=== PATIENT | female | born 1965 | race Caucasian/White ===

== ENCOUNTER 2019-04-27 12:27 | Emergency (ER) | payer OTHER ==
[~2019-04-27 12:27] MED LIST: ACET500T PO; AMOX500T PO; ANTI25TA PO; NO HISTORICAL MEDS
[2019-04-27] MEDS ORDERED: PANT40TA3 (12:50)
[2019-04-27] MEDS ORDERED: ALL10TAB29 (12:50)
[2019-04-27] MEDS ORDERED: MELO15TA28 (12:50)
[2019-04-27] MEDS ORDERED: TIZA2TA (12:50)
[2019-04-27] MEDS ORDERED: METF-791 (12:50)
[2019-04-27] MEDS ORDERED: DULO1CAP6 (12:50)
[2019-04-27] MEDS ORDERED: NS 1,000 ML IV SCH (14:43)
[2019-04-27] MEDS ORDERED: ONDANSETRON 4MG/2ML VIAL (J2405) IV ONE (14:45)
--- NOTE | 2019-04-27 15:23 | REP ---
MRI lumbar spine without contrast: History: Back pain with urinary incontinence. Rule out cauda equina syndrome. Technique: Sagittal and axial T1 and T2-weighted scans are acquired in the usual fashion with and without fat saturation. Sequences include spin echo, turbo spin-echo, and STIR imaging sequences. MRI findings: Lumbar vertebral body heights are preserved. Alignment is normal. Cortical and medullary bone signal intensity are normal. No bony destructive lesion is seen. Normal caliber aorta is noted. There are low T1, low T2 signal intensity mass lesions in the uterus visualized at the bottom of the imaging field of view consistent with an enlarged fibroid uterus. Adjacent to this to the right of midline there are fluid-fluid levels in two small ovarian cysts. Hemorrhagic cyst versus dermoid cyst. The largest cystic component visualized is 3.2 cm in diameter. Consider pelvic sonography. The tip of the conus medullaris is normal in position and appearance at L1. At L2-3, axial and sagittal images demonstrate degenerative disc space narrowing and mild diffuse disc bulging effacing the ventral subarachnoid space. No central canal stenosis or foraminal narrowing is seen. At L3-4, there is mild degenerative narrowing as well. No spinal stenosis or foraminal narrowing is seen. At L4-5, there is mild decreased disc space height and signal intensity. No significant disc protrusion is seen. No thecal sac compression is noted. There is mild facet hypertrophy at L4-5. At L5-S1, there is mild facet hypertrophy noted bilaterally. No disc protrusion is seen. No foraminal narrowing is seen. Impression: Mild degenerative disc changes L2-3 through L4-5. Facet hypertrophy is noted at L4-5 and L5-S1 bilaterally. Disc bulging is seen and L2-3. No cauda equina compression is seen. Incidental note is made of enlarged fibroid uterus and complex cystic lesion in the right ovary. Consider pelvic sonography. Electronically Signed by Ubaldo Fung MD 04/27/2019 03:33 P
[2019-04-27 15:57] LABS: BASO # 0.1 10^3/uL (0.0-0.2); BASO % 0.4 % (0.0-1.0); EOS # 0.1 10^3/uL (0.0-0.5); HEMOGLOBIN 13.7 g/dl (12.0-15.5); LYMPH # 3.2 10^3/uL (1.5-5.0); LYMPH % 28.1 % (24.0-44.0); MEAN CORPUSCULAR HEMOGLOBIN 26.9 pg (27.0-33.0); MEAN CORPUSCULAR HGB CONC 31.9 g/dl (32.0-36.5); MEAN CORPUSCULAR VOLUME 84.5 fl (80.0-96.0); MONO # 0.7 10^3/uL (0.0-0.8); MONO % 6.4 % (0.0-5.0); NEUTROPHILS # 7.3 10^3/uL (1.5-8.5); NEUTROPHILS % 63.8 % (36.0-66.0); PLATELET COUNT, AUTOMATED 307 10^3/uL (150-450); RED BLOOD COUNT 5.09 10^6/uL (4.00-5.40); WHITE BLOOD COUNT 11.5 10^3/uL (4.0-10.0)
--- NOTE | 2019-04-27 16:07 | REP ---
Left lower extremity Duplex Doppler venous ultrasound: Real time compression and duplex Doppler interrogation of the left lower extremity deep venous system is performed. The left common femoral, superficial femoral and popliteal veins are fully compressible with transducer pressure and demonstrate normal spontaneous and phasic flow, without evidence of deep venous thrombosis. Impression: No evidence of deep venous thrombosis of the left lower extremity femoral popliteal venous system. Electronically Signed by Gerardo Vásquez MD 04/27/2019 03:58 P
[2019-04-27 16:12] LABS: INR 1.03; PARTIAL THROMBOPLASTIN TIME 23.7 SECONDS (25.0-38.4); PROTHROMBIN TIME 13.2 SECONDS (11.8-14.0)
[2019-04-27 16:17] LABS: ALBUMIN 3.6 GM/DL (3.2-5.2); ALT/SGPT 40 U/L (12-78); BILIRUBIN,DIRECT 0.1 MG/DL (0.0-0.2); BILIRUBIN,TOTAL 0.4 MG/DL (0.2-1.0); BLOOD UREA NITROGEN 14 MG/DL (7-18); CARBON DIOXIDE LEVEL 26 MEQ/L (21-32); CHLORIDE LEVEL 104 MEQ/L (98-107); CREATININE FOR GFR 0.84 MG/DL (0.55-1.30); GLOMERULAR FILTRATION RATE > 60.0 (>51); GLUCOSE, FASTING 126 MG/DL (70-100); LIPASE 239 U/L (73-393); POTASSIUM SERUM 4.1 MEQ/L (3.5-5.1); SODIUM LEVEL 139 MEQ/L (136-145); TOTAL PROTEIN 7.1 GM/DL (6.4-8.2)
[2019-04-27] MEDS ORDERED: ZOFR4TAB16 PO (18:09)
[2019-04-27 18:42] VITALS: BP 153/67
--- NOTE | 2019-04-27 19:33 | ED PDOC ---
Post-Departure Follow-Up dr cesar faxed formal report of mri ls spine for fu Rosa Butterfield MD Apr 27, 2019 19:33
--- NOTE | 2019-04-27 20:10 | ECGEPIP ---
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
== END 2019-04-27 18:53 | disposition home or self-care (01) ==
LOC: M ED 12:27 → EDBD 12:27 → M ED 18:53
DX: R11.2 Nausea with vomiting, unspecified (principal); R19.7 Diarrhea, unspecified; R10.32 Left lower quadrant pain; R73.03 Prediabetes; I10 Essential (primary) hypertension; F32.9 Major depressive disorder, single episode, unspecified; K21.9 Gastro-esophageal reflux disease without esophagitis; Z87.440 Personal history of urinary (tract) infections; G89.29 Other chronic pain; M54.9 Dorsalgia, unspecified; M51.36 Other intervertebral disc degeneration, lumbar region; M51.26 Other intervertebral disc displacement, lumbar region; D25.9 Leiomyoma of uterus, unspecified; Z79.84 Long term (current) use of oral hypoglycemic drugs; Z79.899 Other long term (current) drug therapy
CPT/HCPCS: 72148; 80048; 80076; 81001; 83690; 85025; 85610; 85730; 93005; 93041; 93971; 96361; 96374; 99285; J2405

== ENCOUNTER 2021-05-30 09:47 | Inpatient (IN) | payer OTHER ==
[~2021-05-30] VITALS: Ht 152.4 cm; Wt 77.5 kg
[~2021-05-30 09:47] MED LIST changes: +CETI-24; +DULO1CAP6; +MELO15TA28; +METF-838; +PANT40TA29; +TIZA2TA; +ZOFR4TAB16 PO
[2021-05-30] MEDS ORDERED: FLUTISP NARES (09:57)
[2021-05-30] MEDS ORDERED: AMOX875T2 PO (09:57)
--- OUTSIDE RECORDS SUMMARY | 2021-05-30 11:21 | CCD ---
Author Author [facility] Organization [facility] Address Unknown Phone Unavailable Care Team Providers Care Certified Personal Finance Counselor Name Role Phone Maring, Owen PA Unavailable Unavailable Maring, Owen PA Unavailable Unavailable Maring, Owen PA Unavailable Unavailable Maring, Owen PA Unavailable Unavailable Maring, Owen PA Unavailable Unavailable Maring, Owen PA Unavailable Unavailable Maring, Owen PA Unavailable Unavailable Maring, Owen PA Unavailable Unavailable Maring, Owen PA Unavailable Unavailable Maring, Owen PA Unavailable Unavailable Maring, Owen PA Unavailable Unavailable Maring, Owen PA Unavailable Unavailable Maring, Owen PA Unavailable Unavailable Maring, Owen PA Unavailable Unavailable Maring, Owen PA Unavailable Unavailable Maring, Owen PA Unavailable Unavailable Re-disclosure Warning The records that you are about to access may contain information from federally-assisted alcohol or drug abuse programs. If such information is present, then the following federally mandated warning applies: This information has been disclosed to you from records protected by federal confidentiality rules (42 CFR part 2). The federal rules prohibit you from making any further disclosure of this information unless further disclosure is expressly permitted by the written consent of the person to whom it pertains or as otherwise permitted by 42 CFR part 2. A general authorization for the release of medical or other information is NOT sufficient for this purpose. The Federal rules restrict any use of the information to criminally investigate or prosecute any alcohol or drug abuse patient.The records that you are about to access may contain highly sensitive health information, the redisclosure of which is protected by Article 27-F of the [facility] Public Health law. If you continue you may have access to information: Regarding HIV / AIDS; Provided by facilities licensed or operated by the [facility] Office of Mental Health; or Provided by the [facility] Office for People With Developmental Disabilities. If such information is present, then the following [facility] mandated warning applies: This information has been disclosed to you from confidential records which are protected by state law. State law prohibits you from making any further disclosure of this information without the specific written consent of the person to whom it pertains, or as otherwise permitted by law. Any unauthorized further disclosure in violation of state law may result in a fine or halfway sentence or both. A general authorization for the release of medical or other information is NOT sufficient authorization for further disc losure. Encounters Encounter Providers Location Date Indications Data Source(s ) Outpatient Attender: Owen PÉREZ 03/15/20 07:21:20 AM EDT - 03/15/2021 07:48:54 [facility] Medications Medication Brand Name Start Date Product Form Dose Route Admi nistrative Instructions Pharmacy Instructions Status Indications Reaction Description Data Source(s) Amoxicillin 875 MG / Clavulanate 125 MG Oral Tablet 87 5-125 mg AMOXICILLIN/POTASSIUM CLAV 05/28/2021 12:00:00 AM EDT tablet 20 TAKE ONE TABLET BY MOUTH EVERY 12 HOURS FOR 10 DAYS TAKE ONE TABLET BY MOUTH EVERY 12 HOURS FOR 10 DAYS SOLD: 05/28/2021 [facility] 50 mcg/actuation 05/28/2021 12:00:00 AM EDT spray,suspension 16 SPRAY TWO SPRAYS IN EACH NOSTRIL EVERY DAY SPRAY TWO SPRAYS IN EACH NOSTRIL EVERY DAY SOLD: 05/28/2021 [facility] Insurance Providers Payer name Policy type / Coverage type Policy ID Covered libertarian ID Covered libertarian's relationship to chicas Policy Chicas Plan Information [facility] [id number] SP [id number] Aetna Other 0 [id number] Self 0 Aetna Other 0 [id number] Self 0 Aetna Other 0 [id number] Self 0 Aetna Other 0 [id number] Self 0 Aetna Other 0 [id number] Self 0 Aetna Other 0 [id number] Self 0 Aetna Life Insurance F [id number] SELF [id number] Aetna Life Insurance F [id number] SELF [id number] [facility] W [id number] Empl [id number] [place] Other 0 [id number] Self 0 [place] Other 0 [id number] Self 0 [place] Other 0 [id number] Self 0 [place] Other 0 [id number] Self 0 [place] Other 0 [id number] Self 0 [place] Other 0 [id number] Self 0 [place] Other 0 [id number] Self 0 [place] 0 [id number] Self 0 [place] 0 [id number] Self 0 [place] Other 0 [id number] Self 0 [place] 0 [id number] Self 0 [place] Other 0 [id number] Self 0 [place] Other 0 [id number] Self 0 [place] Other 0 [id number] Self 0 [place] Other 0 [id number] Self 0 [place] Other 0 [id number] Self 0 BC [id number] SP [id number] 400 [place] Other 0 [id number] Self 0 [place] Other 0 [id number] Self 0 [place] Other 0 [id number] Self 0 [place] Other 0 [id number] Self 0 [place] Other 0 [id number] Self 0 [place] 0 [id number] Self 0 [place] 0 [id number] Self 0 [place] 0 [id number] Self 0 [place] Other 0 [id number] Self 0 [place] Other 0 [id number] Self 0 [place] Other 0 [id number] Self 0 [place] Other 0 [id number] Self 0 [place] Other 0 [id number] Self 0 BC MEDICAID [id number] Frida 7 [id number] [place] Other 0 [id number] Self 0 BC MEDICARE [id number] Frida 7 [id number] [place] Other 0 [id number] Self 0 [place] Other 0 [id number] Self 0 [place] Other 0 [id number] Self 0 [place] Other 0 [id number] Self 0 BC I [id number] Self [id number] BC [id number] SP [id number] SELF PAY SELF PAY [place] [id number] SP [id number] SELF PAY [place] [id number] SP [id number] AETNA LIFE CASUALTY [id number] SP [id number] SELF PAY [place] [id number] SP [id number] [employer]. [id number] Self [id number] SELF PAY UNAVAILABLE SP UNAVAILA BLE [facility] [id number] SP [id number] BC [id number] SP [id number] [facility] COMMUNITY PLAN [id number] SP [id number] [employer] [id number] SP [id number] [employer] [place] [id number] Commercial Insurance [employer] Aetna Medicare ..[id number] Commercial Insurance [facility] P [id number] S [id number] [facility] COMMUNITY PLAN [facility] [id number] SP [id number] [employer] [id number] SP [id number] SELF PAY UNAVAILABLE UNAVAILA BLE WC-PENDING UNAVAILABLE SP UNAVAIL ABLE [employer] COMP UNAVAILABLE UNAVAIL ABLE [employer] [id number] Commercial Ins urance [id number] UN ID IDENTIFICATION .[id number] .[id number] [id number] Other Insurance .[id number] [facility] [id number] Commercial Insurance [id number] [employer] MEDICARE PI PI Problems, Conditions, and Diagnoses No Information Surgeries/Procedures No Information Results ID Date Data Source [id number] 05/20/2021 12:00:00 AM EDT [place] Name Value Range Interpretation Code Description Data Sally rce(s) Supporting Document(s) PCR NEGATIVE [place] This lab was ordered by [facility] and reported by [facility]. ID Date Data Source [id number] 08/15/2020 11:30:19 AM EST [facility] Name Value Range Interpretation Code Description Data Sally rce(s) Supporting Document(s) SARS COV2 SOURCE [facility] SARS COV 2 BY PCR [facility] Not Detected INTERPRETIVE INFORMATION: S ARS-CoV-2 (COVID-19) by CHRIS This test should be ordered for the detection of the 2019 novel coronavirus SARS-CoV-2 in individuals who meet SARS-CoV-2 clinical and/or epidemiological criteria. The Coronavirus SARS-CoV-2 (COVID-19) by nucleic acid amplification test is for in vitro diagnostic use under the FDA Emergency Use Authorization (EUA) for US laboratories certified under CLIA to perform high complexity tests. This test has not been FDA cleared or approved. In compliance with this authorization, please visit [email or web address] for more information and to access the applicable information sheets. Not Detected results do not rule out the presence of PCR inhibitors in the patient specimen or assay specific nucleic acid in concentrations below the level of detection by the assay. Detected results are indicative of the presence of SARS-CoV-2 RNA. Due to the complexity of nucleic acid amplification methodologies, there may be a risk of false positive results. Clinical correlation with patient history and other diagnostic information is necessary to determine patient infection status. Reliable results are dependent on adequate specimen collection, transport, storage, and handling. Performed by [facility] [employer], [address] [place] [address],[place] [address] [email or web address], Madonna Wilburn MD, Lab. Director ID Date Data Source [id number] 08/12/2020 12:00:00 AM EST [place] Name Value Range Interpretation Code Description Data Sally rce(s) Supporting Document(s) SARS-CoV2 Rapid Antigen Negative [facility] This lab was ordered by [facility] and reported by [facility]. Procedure Social History No Information
[2021-05-30 11:32] LABS: HEMATOCRIT 48.9 % (36.0-47.0); HEMOGLOBIN 15.6 g/dl (12.0-15.5); MEAN CORPUSCULAR HEMOGLOBIN 27.3 pg (27.0-33.0); MEAN CORPUSCULAR HGB CONC 31.9 g/dl (32.0-36.5); MEAN CORPUSCULAR VOLUME 85.5 fl (80.0-96.0); PLATELET COUNT, AUTOMATED 186 10^3/uL (150-450); RED BLOOD COUNT 5.72 10^6/uL (4.00-5.40); WHITE BLOOD COUNT 4.6 10^3/uL (4.0-10.0)
[2021-05-30] MEDS ORDERED: NS 1,000 ML IV ONE (11:45)
[2021-05-30] MEDS ORDERED: MECLIZINE 25 MG TABLET PO ONE (11:45)
[2021-05-30] MEDS ORDERED: ONDANSETRON 4MG/2ML VIAL IV ONE (11:45)
[2021-05-30 11:56] LABS: ALBUMIN 3.4 GM/DL (3.2-5.2); ALT/SGPT 146 U/L (12-78); BILIRUBIN,TOTAL 0.8 MG/DL (0.2-1.0); BLOOD UREA NITROGEN 11 MG/DL (7-18); CALCIUM LEVEL 8.8 MG/DL (8.5-10.1); CARBON DIOXIDE LEVEL 33 MEQ/L (21-32); CHLORIDE LEVEL 98 MEQ/L (98-107); CREATININE FOR GFR 0.88 MG/DL (0.55-1.30); GLOMERULAR FILTRATION RATE > 60.0 (>51); GLUCOSE, FASTING 144 MG/DL (70-100); POTASSIUM SERUM 3.3 MEQ/L (3.5-5.1); SODIUM LEVEL 135 MEQ/L (136-145); TOTAL PROTEIN 7.2 GM/DL (6.4-8.2)
--- NOTE | 2021-05-30 12:06 | REP ---
INDICATION: Coronavirus workup. COMPARISON: None. TECHNIQUE: AP portable chest image was obtained. FINDINGS: There is airspace disease in the left lung base consistent with atelectasis or pneumonia. The lungs are otherwise clear. The heart borders and mediastinum are normal. The upper abdominal bowel gas pattern is normal. There are no bony abnormalities of the chest. IMPRESSION: Airspace disease in the left lung base consistent with atelectasis or pneumonia. <Electronically signed by Tico Nichole > 05/30/21 [id number]
[2021-05-30 12:22] LABS: ANISOCYTOSIS 1+; ATYPICAL LYMPH 3 % (0-5); LYMPHOCYTES 31 % (16-44); MONOCYTES 3 % (0-5); NEUTROPHILS 62 % (28-66); PLATELET ESTIMATE NORMAL (NORMAL)
[2021-05-30 12:59] LABS: C REACTIVE PROTEIN QUANTITATIV 2.08 MG/DL (0.00-0.30); CK-MB VALUE MASS < 1.0 NG/ML (<3.6); CPK CREATINE PHOSPHOKINASE 25 U/L (26-192); LDH LACTATE DEHYDROGENASE 300 U/L (84-246); MAGNESIUM LEVEL 2.3 MG/DL (1.8-2.4); TROPONIN I < 0.02 NG/ML (< 0.10)
[2021-05-30] MEDS ORDERED: POTASSIUM CHLORIDE 10MEQ SR TABLET PO ONE (14:05)
[2021-05-30] MEDS ORDERED: ACETAMINOPHEN TAB 650MG DOSE (2X325MG) PO PRN (14:35)
--- OUTSIDE RECORDS SUMMARY | 2021-05-30 14:48 | CCD ---
Author Author [facility] Organization [facility] Address Unknown Phone Unavailable Care Team Providers Care Tunnel Kiln Operator Name Role Phone Maring, Owen PA Unavailable [...] is protected by Article 27-F of the [facility] Public Health law. If you continue you may have access to information: Regarding HIV / AIDS; Provided by facilities licensed or operated by the [facility] Office of Mental Health; or Provided by the [facility] Office for People With Developmental Disabilities. If such information is present, then the following [facility] mandated warning applies: This information has been [...] law may result in a fine or mcfp sentence or both. A general authorization for the release of medical or other information is NOT sufficient authorization for further disc losure. Encounters Encounter Providers Location Date Indications Data Source(s ) Outpatient Attender: Owen PÉREZ 03/15/20 07:21:20 AM EDT - 03/15/2021 07:48:54 AM EDT [facility] Medications Medication Brand Name [...] type / Coverage type Policy ID Covered green party ID Covered green party's relationship to chicas Policy Chicas Plan Information [facility] [id number] SP [id number] Aetna Other 0 [id number] Self 0 Aetna Other 0 [id number] Self 0 Aetna Other 0 [id number] Self 0 Aetna Other 0 [id number] Self 0 Aetna Other 0 [id number] Self 0 Aetna Other 0 [id number] Self 0 Aetna Life Insurance F [id number] SELF [id number] Aetna Life Insurance F [id number] SELF [id number] [facility] W [id number] Empl [id number] Medicaid of [place] Other 0 [id number] Self 0 [place] Other 0 [id number] Self 0 [place] Other 0 [id number] Self 0 [place] Other 0 [id number] Self 0 [place] Other 0 [id number] Self 0 [place] Other 0 [id number] Self 0 [place] Other 0 [id number] Self 0 [place] Other 0 [id number] Self 0 [place] Other 0 [id number] Self 0 [place] Other 0 [id number] Self 0 [place] Other 0 [id number] Self 0 [place] Other 0 [id number] Self 0 [place] Other 0 [id number] Self 0 [place] Other 0 [id number] Self 0 [place] Other 0 [id number] Self 0 [place] Other 0 [id number] Self 0 BC [id number] SP [id number] [place] Other 0 [id number] Self 0 [place] Other 0 [id number] Self 0 [place] Other 0 [id number] Self 0 [place] Other 0 [id number] Self 0 [place] Other 0 [id number] Self 0 [place] Other 0 [id number] Self 0 [place] Other 0 [id number] Self 0 [place] Other 0 [id number] Self 0 [place] Other 0 [id number] Self 0 [place] Other 0 [id number] Self 0 [place] Other 0 [id number] Self 0 [place] Other 0 [id number] Self 0 [place] Other 0 [id number] Self 0 BC MEDICAID [id number] Frida 7 [id number] [place] Other 0 [id number] Self 0 BC MEDICARE [id number] Frida 7 [id number] [place] Other 0 [id number] Self 0 [place] Other 0 [id number] Self 0 [place] Other 0 [id number] Self 0 [place] Other 0 [id number] Self 0 BC I [id number] Self [id number] BC [id number] SP [id number] SELF PAY SELF PAY [place] [id number] SP [id number] SELF PAY BC [id number] SP [id number] [employer] [id number] SP [id number] SELF PAY [place] [id number] SP [id number] Bc [employer] Co. [id number] Self [id number] SELF PAY UNAVAILABLE SP UNAVAILA BLE [facility] [id number] SP [id number] BC [id number] SP [id number] [facility]AN [id number] SP [id number] [employer] [id number] SP [id number] [employer] [place] [employer] [id number] Commercial Insurance [employer] [place] Aetna Medicare ..[id number] Commercial Insurance [facility]) P [id number] S [id number] [facility] COMMUNITY PLAN [facility] [id number] SP [id number] [employer] [id number] SP [id number] SELF PAY UNAVAILABLE UNAVAILA BLE WC-PENDING UNAVAILABLE SP UNAVAIL ABLE [employer] COMP UNAVAILABLE UNAVAIL ABLE [employer] [place] [id number] Commercial Ins urance [id number] UN ID IDENTIFICATION .[id number] .1.1 [id number] Other Insurance .[id number] [facility] [id number] Commercial Insurance [id number] [employer] MEDIC[employer] PI PI Problems, Conditions, and Diagnoses No Information Surgeries/Procedures No Information Results ID Date Data Source [id number] 05/20/2021 12:00:00 AM EDT [place] Name Value Range Interpretation Code Description Data Sally rce(s) Supporting Document(s) PCR NEGATIVE [facility] This lab was ordered by [facility] and reported by [facility]. ID Date Data Source [id number] 08/15/2020 11:30:19 AM EST Laboratory [facility] [...] In compliance with this authorization, please visit [email or web address] for more information and to access the [...] collection, transport, storage, and handling. Performed by [facility], [address] [place] [address],[place] [address] [email or web address], Madonna Wilburn MD, Lab. Director ID Date Data Source [id number] 08/12/2020 12:00:00 AM EST [place] Name Value Range Interpretation Code Description Data Sally rce(s) Supporting Document(s) SARS-CoV2 Rapid Antigen Negative [facility] This lab was ordered by [facility] are and reported by [facility]. Procedure Social History No Information
[2021-05-30] MEDS ORDERED: ACET-683 PO (14:53)
[2021-05-30] MEDS ORDERED: HOME MED LIST COMPLETE! XX SCH (14:55)
[2021-05-30] MEDS ORDERED: ONDANSETRON 4MG/2ML VIAL IV PRN (15:00)
--- NOTE | 2021-05-30 15:03 | HPEPDOC ---
[facility] Medical History & Physical Date of Admission May 30, 2021 Date of Service: May 30, 2021 Attending Physician: TINO RITTER DO History and Physical CHIEF COMPLAINT: Nausea and vomiting HISTORY OF PRESENT ILLNESS: Patient is a 55-year-old female who presented to the emergency department today with chief complaint of nausea and vomiting. Patient states that she has been vomiting over the past 5 days. Patient states she has vomited 2-3 times each 1 of these days. Patient denies any blood in the vomit. Patient has not really been able to keep any food down over the last 5 days. Patient has been feeling increasingly weak and when she was here in the emergency department, the emergency department provider try to get her up and walk however, patient was so weak that she is unable to walk. Patient states that she went to urgent care earlier in the week and was diagnosed with otitis media and given Augmentin. Patient states that the Augmentin has not been helping and she continues to feel sick. Patient states that she had some stabbing pain in her ear but this may be slightly better. Patient describes a nonproductive cough but denies any shortness of breath. Patient denies any chest pain. Patient says she does have some mild abdominal pain mostly when she is vomiting. Patient was having some diarrhea but since she has not been eating, she has not had diarrhea over the past few days. When she was having diarrhea, this was brown water. Patient denies any blood in the diarrhea. Patient denies any feelings of dizziness but does state that she feels lightheaded. Patient denies any syncope. Patient was tested positive in the emergency department for COVID-19. PAST MEDICAL HISTORY: Patient denies any medical history stating that she is not treated for any chronic diseases PAST SURGICAL HISTORY: Patient states that she has never had any surgeries SOCIAL HISTORY: Patient denies smoking cigarettes, drinking alcohol or using illicit drugs FAMILY HISTORY: Patient states her mother has diabetes and is about to start hemodialysis ALLERGIES: Please see below. REVIEW OF SYSTEMS: General: Patient denies fevers and chills HEENT: Patient reports headaches and runny nose and ear pain Cardiovascular: Patient denies chest pain Respiratory: Patient denies shortness of breath. Patient reports a nonproductive cough GI: Patient reports abdominal pain, nausea, vomiting and diarrhea as above : Patient denies increased frequency or pain with urination Extremities: Patient denies swelling or pain in extremities Neurological: Patient denies numbness or tingling in legs Skin: Patient denies any new rashes or lesions. Hematologic: Patient denies any easy bruising. Lymphatic: Patient denies any lumps lumps or bumps in neck, axilla, or groin HOME MEDICATIONS: Please see below. PHYSICAL EXAMINATION: VITAL SIGNS: Temperature 97.9, pulse 65, respiratory rate 16, blood pressure 135/66, pulse oximetry 96% on room air. General: Alert and oriented female patient who was laying in bed on her side when I walked in. Patient not appear to be in any acute distress. HEENT: Normocephalic, atraumatic, dry mucous membranes, tympanic membranes pearly chao without erythema or exudate. Neck: No lymphadenopathy or thyromegaly Cardiac: Regular rate and rhythm, no murmurs, normal S1, normal S2 Pulm: Clear to auscultation bilaterally. No wheezes, rhonchi, rales Abd: Nondistended, minimal tenderness to palpation especially epigastric area, no rebound tenderness, normal bowel sounds Ext: No edema bilateral lower extremities Neuro: Patient was able to move all 4 extremities on command and reported equal sensation light touch in all 4 extremities. Skin: Skin of the head, neck, upper and lower extremities was examined did not show any evidence of rash or wounds. LABORATORY DATA: See below. IMAGING: Chest x-ray performed on 05/30/2021 is reported to show airspace disease in the left base consistent with atelectasis or pneumonia MICROBIOLOGY: Please see below. ASSESSMENT: 55-year-old female who presented to the hospital with chief complaint of nausea and vomiting who was diagnosed with COVID-19. . PLAN: 1. Nausea and vomiting. Patient is not been able to eat anything for the last 5 days according to the patient. She states that she has been able to drink some water. Patient reports some decreased urination and some dry mucous membranes. Patient received a bolus in the emergency department however, patient was so weak that she was unable to walk most likely due to dehydration in combination with COVID-19. Patient will be admitted to the hospital. Patient be started on brat diet. Patient will receive 2 L of normal saline with 20 mEq potassium per liter at a rate of 170 mL/h which is 1.5 maintenance rate based on body weight. Patient will be given Zofran as needed for nausea. 2. COVID-19. This may be the cause of the patient's nausea and vomiting as well as her weakness. Patient does have a nonproductive cough but is not hypoxic. Patient does not meet criteria for dexamethasone and/or remdesivir at this time. Patient will have her oxygen saturation monitored and if she does require oxygen, patient will be started on dexamethasone and remdesivir. 3. Mild hyponatremia. Patient's sodium was 135. This should be corrected with normal saline. 4. Hypokalemia. Patient's potassium was decreased. Patient will receive 20 mE q of potassium per liter and her IV fluids. 5. Transaminitis. This is most likely secondary to the patient's COVID-19 infection however, hepatitis panel will be ordered. 6. Otitis media. Patient is eardrum does not appear inflamed at this time however, she was started on antibiotics and these will be continued in the hospital. 7. Airspace disease seen on chest x-ray. Patient has been on Augmentin for the past few days. Procalcitonin has been ordered. If patient develops symptoms consistent with pneumonia, antibiotics can be broadened however, Augmentin should cover most pathogens that would be causing a bacterial pneumonia. Patient also does not have a leukocytosis at this time. 8. DVT prophylaxis: Lovenox 9. CODE STATUS: Full code Disposition: Patient will be admitted under observation status on the medical surgical floor. Vital Signs Vital Signs Date Time Temp Pulse Resp B/P (MAP) Pulse Ox O2 Delivery O2 Flow Rate FiO2 05/30/21 14:02 93 Room Air 05/30/21 14:01 65 20 135/66 (89) 05/30/21 09:55 97.9 Laboratory Data Labs 24H Laboratory Tests 2 05/30/21 11:10: Neutrophils (%) (Auto) , Nucleated Red Blood Cells % (auto) 0.0, Neutrophils 62, Band Neutrophils 1, Lymphocytes (Manual) 31, Monocytes (Manual) 3, Atypical Lymphocytes 3, Anisocytosis 1+, Platelet Estimate NORMAL, Anion Gap 4L, Glomerular Filtration Rate > 60.0, Calcium Level 8.8, Magnesium Level 2.3, Total Bilirubin 0.8, Aspartate Amino Transf (AST/SGOT) 110H, Alanine Aminotransferase (ALT/SGPT) 146H, Alkaline Phosphatase 120H, Lactate Dehydrogenase 300H, Total Creatine Kinase 25L, Creatine Kinase MB < 1.0, Creatine Kinase MB Relative Index 4.00, Troponin I < 0.02, C-Reactive Protein, Quantitative 2.08H, Total Protein 7.2, Albumin 3.4, Albumin/Globulin Ratio 0.9L CBC/BMP Laboratory Tests 05/30/21 11:10 Microbiology Microbiology 05/30/21 Respiratory Virus Panel (PCR) ([facility]) - Final, Complete SARS-CoV-2 (COVID 19) Home Medications Scheduled Amoxicillin/Potassium Clav (Amox-Clav 875-125 mg Tablet) 1 Each Tablet, 1 TAB PO BID Scheduled PRN Acetaminophen (Acetaminophen) 500 Mg Tablet, 500 MG PO Q6H PRN for PAIN LEVEL 1- 4 Fluticasone Propionate (Fluticasone Propionate) 16 Gm [place].susp, 2 SPRAY NARES DAILY PRN for CONGESTION Allergies Coded Allergies: No Known Allergies (Verified , 09/04/12) A-FIB/CHADSVASC A-FIB History Current/History of A-Fib/PAF?: No TINO RITTER DO May 30, 2021 15:03
[2021-05-30] MEDS: AUGMENTIN 875 MG TAB PO SCH ×2 (17:04→22:22)
[2021-05-30] MEDS: KCL 20MEQ in NS 1000ML 1,000 ML IV SCH ×2 (17:30→22:23)
--- NOTE | 2021-05-30 20:04 | ECGEPIP ---
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
[2021-05-30 22:40] VITALS: BP 122/68
[2021-05-31] MEDS: KCL 20MEQ in NS 1000ML 1,000 ML IV SCH (00:35)
[2021-05-31 06:16] LABS: HEMATOCRIT 43.7 % (36.0-47.0); HEMOGLOBIN 13.8 g/dl (12.0-15.5); MEAN CORPUSCULAR HEMOGLOBIN 27.8 pg (27.0-33.0); MEAN CORPUSCULAR HGB CONC 31.6 g/dl (32.0-36.5); MEAN CORPUSCULAR VOLUME 88.1 fl (80.0-96.0); PLATELET COUNT, AUTOMATED 181 10^3/uL (150-450); RED BLOOD COUNT 4.96 10^6/uL (4.00-5.40); WHITE BLOOD COUNT 4.6 10^3/uL (4.0-10.0)
[2021-05-31 06:25] LABS: BLOOD UREA NITROGEN 9 MG/DL (7-18); CARBON DIOXIDE LEVEL 28 MEQ/L (21-32); CHLORIDE LEVEL 109 MEQ/L (98-107); CREATININE FOR GFR 0.66 MG/DL (0.55-1.30); GLOMERULAR FILTRATION RATE > 60.0 (>51); GLUCOSE, FASTING 108 MG/DL (70-100); SODIUM LEVEL 142 MEQ/L (136-145)
[2021-05-31 06:34] VITALS: BP 110/57
[2021-05-31] MEDS: AUGMENTIN 875 MG TAB PO SCH ×2 (09:22→20:11)
[2021-05-31] MEDS: ENOXAPARIN 40MG/0.4ML SYRINGE (J1650 PER 10MG) SC SCH (09:23)
[2021-05-31 09:30] VITALS: O2SAT 88
[2021-05-31 09:31] VITALS: O2SAT 93
[2021-05-31] MEDS: dexameTHASONE 4 MG/ML 1ML VIAL (J1100 PER 1MG) IV SCH (11:00)
--- NOTE | 2021-05-31 11:07 | IPNPDOC ---
Text Note Date of Service The patient was seen on 05/31/21. NOTE Subjective: Patient is a 55-year-old female who presented to the emergency d [facility] yesterday with chief complaint of nausea and vomiting. Patient was given IV fluid hydration and says that the vomiting has slowed down however, she began eating breakfast and began to have diarrhea. Patient also became hypoxic overnight requiring 1 L of oxygen to be started in order to keep the patient's oxygen saturation greater than 90%. When the patient does exert herself, it drops lower as well. Patient still is feeling ill but states she is feels mildly better now that she is rehydrated. Review of systems: General: Patient denies fevers HEENT: Patient denies headaches Cardiovascular: Patient denies chest pain Respiratory: Patient reports nonproductive cough. Denies shortness of breath GI: Patient reports improvement in nausea and vomiting but now has brown watery diarrhea : Patient denies increased frequency or pain with urination Extremities: Patient denies swelling or pain in extremities Neurological: Patient denies numbness or tingling in legs Physical exam: Vitals: See below General: Alert and oriented female patient who was laying in bed when I walked i n. Patient not appear to be in any acute distress. HEENT: Normocephalic, atraumatic, moist mucous membranes. Neck: No lymphadenopathy or thyromegaly Cardiac: Regular rate and rhythm, no murmurs, normal S1, normal S2 Pulm: Clear to auscultation bilaterally. No wheezes, rhonchi, rales Abd: Nondistended, nontender to palpation, normal bowel sounds Ext: No edema bilateral lower extremities Labs: See below Imaging: No new imaging is been performed Assessment/plan: 55-year-old female presented hospital chief complaint of nausea and vomiting was diagnosed with COVID-19 1. Nausea and vomiting and diarrhea. Patient started eating a small amount today but began to have brown watery diarrhea. Patient is only had one episode of this. Patient had IV fluid hydration which has improved her hydration status at this time. Patient's electrolytes are back within the normal range. We will continue to monitor. 2. COVID-19. This may be the reason the patient is having nausea vomiting and diarrhea at this time. Patient also has a nonproductive cough. Patient is now requiring oxygen therapy so dexamethasone and remdesivir has started. 3. Mild hyponatremia. This is resolved at this time we will continue to monitor. 4. Hypokalemia. This has resolved at this time we will continue to monitor. 5. Transaminitis. This will be rechecked. Patient's ALT is about double the upper limit of normal. We will need to watch this closely as we start remdesivir. According to NIH guidelines, remdesivir should not be started and should be stopped if ALT is greater than 10 times the upper limit of normal. Transaminitis is most likely secondary to COVID-19 however, hepatitis panel was ordered. 6. Otitis media. Continue antibiotics prescribed by urgent care. 7. Airspace disease seen on chest x-ray. Procalcitonin still pending. Continue Augmentin at this time. 8. Hypoxia. Patient is now requiring 1 L of nasal cannula oxygen to maintain saturations greater than 90%. Treatment for COVID-19 has been started as above. DVT Prophylaxis: Lovenox Disposition: Pending clinical improvement. Patient has been changed to inpatient status due to hypoxia VS,Angelitae, I+O VS, Angelitae, I+O Laboratory Tests 05/30/21 11:10 05/31/21 05:02 Vital Signs Date Time Temp Pulse Resp B/P (MAP) Pulse Ox O2 Delivery O2 Flow Rate FiO2 05/31/21 06:34 96.8 63 18 110/57 (74) 95 Nasal Cannula 1.0 I&O- Last 24 Hours up to 6 AM 05/31/21 06:00 Intake Total 2120 ml Output Total 0 ml Balance 2120 ml TINO RITTER DO May 31, 2021 11:07
[2021-05-31] MEDS ORDERED: REMDESIVIR 200 MG in NS 250 ML IV ONE (12:00)
[2021-05-31 14:00] VITALS: BP 105/67
[2021-05-31] MEDS ORDERED: SODIUM CHLORIDE 0.9% INJ 10 ML SYR IV ONE (14:00)
[2021-05-31 20:00] VITALS: O2SAT 92
[2021-05-31 20:12] VITALS: BP 116/55
[2021-06-01 04:18] VITALS: BP 120/58
[2021-06-01 06:33] LABS: HEMATOCRIT 42.3 % (36.0-47.0); HEMOGLOBIN 13.4 g/dl (12.0-15.5); MEAN CORPUSCULAR HEMOGLOBIN 27.5 pg (27.0-33.0); MEAN CORPUSCULAR HGB CONC 31.7 g/dl (32.0-36.5); MEAN CORPUSCULAR VOLUME 86.7 fl (80.0-96.0); PLATELET COUNT, AUTOMATED 221 10^3/uL (150-450); RED BLOOD COUNT 4.88 10^6/uL (4.00-5.40)
[2021-06-01 07:05] LABS: ALBUMIN 2.7 GM/DL (3.2-5.2); ALT/SGPT 104 U/L (12-78); BILIRUBIN,DIRECT 0.1 MG/DL (0.0-0.2); BILIRUBIN,TOTAL 0.4 MG/DL (0.2-1.0); BLOOD UREA NITROGEN 9 MG/DL (7-18); CALCIUM LEVEL 8.9 MG/DL (8.5-10.1); CARBON DIOXIDE LEVEL 26 MEQ/L (21-32); CHLORIDE LEVEL 107 MEQ/L (98-107); CREATININE FOR GFR 0.58 MG/DL (0.55-1.30); GLOMERULAR FILTRATION RATE > 60.0 (>51); GLUCOSE, FASTING 127 MG/DL (70-100); MAGNESIUM LEVEL 2.1 MG/DL (1.8-2.4); POTASSIUM SERUM 3.8 MEQ/L (3.5-5.1); SODIUM LEVEL 137 MEQ/L (136-145); TOTAL PROTEIN 6.6 GM/DL (6.4-8.2)
[2021-06-01] MEDS ORDERED: FLUBLOK(EGG FREE)(QUAD)INFLUENZA VACC 0.5ML SYRINGE 18YRS & OLDER IM ONE (09:00)
[2021-06-01] MEDS ORDERED: PREVNAR 13 VACCINE SYRINGE IM ONE (09:00)
[2021-06-01] MEDS: ENOXAPARIN 40MG/0.4ML SYRINGE (J1650 PER 10MG) SC SCH (09:27)
[2021-06-01] MEDS: dexameTHASONE 4 MG/ML 1ML VIAL (J1100 PER 1MG) IV SCH (09:27)
[2021-06-01] MEDS: AUGMENTIN 875 MG TAB PO SCH (09:27)
[2021-06-01] MEDS ORDERED: REMDESIVIR 100 MG in NS 250 ML IV SCH (12:00)
[2021-06-01] MEDS ORDERED: PRED20TA PO (12:53)
[2021-06-01] MEDS ORDERED: SODIUM CHLORIDE 0.9% INJ 10 ML SYR IV SCH (13:00)
--- NOTE | 2021-06-01 13:51 | DS.PDOC ---
Discharge Summary General Date of Admission May 31, 2021 at 09:46 Date of Discharge 06/01/2021 Attending Physician: TINO RITTER DO Discharge Summary PROCEDURES PERFORMED DURING STAY: None. ADMITTING DIAGNOSES: 1. Nausea and vomiting. 2. COVID-19 3. Mild hyponatremia 4. Hypokalemia 5. Transaminitis 6. Otitis media 7. Airspace disease seen on chest x-ray DISCHARGE DIAGNOSES: 1. Nausea, vomiting, and diarrhea, improved. 2. COVID-19 3. Mild hyponatremia, resolved 4. Hypokalemia resolved 5. Transaminitis, improved 6. Otitis media 7. Hypoxia secondary to COVID-19, improved COMPLICATIONS/CHIEF COMPLAINT: Covid-19 Virus Infection,Nvd. HISTORY OF PRESENT ILLNESS: Patient is a 55-year-old female who presented to the emergency department today with chief complaint of nausea and vomiting. Patient states that she has been vomiting over the past 5 days. Patient states she has vomited 2-3 times each 1 of these days. Patient denies any blood in the vomit. Patient has not really been able to keep any food down over the last 5 days. Patient has been feeling increasingly weak and when she was here in the emergency department, the emergency department provider try to get her up and walk however, patient was so weak that she is unable to walk. Patient states t hat she went to urgent care earlier in the week and was diagnosed with otitis media and given Augmentin. Patient states that the Augmentin has not been helping and she continues to feel sick. Patient states that she had some stabbing pain in her ear but this may be slightly better. Patient describes a nonproductive cough but denies any shortness of breath. Patient denies any chest pain. Patient says she does have some mild abdominal pain mostly when she is vomiting. Patient was having some diarrhea but since she has not been eating, she has not had diarrhea over the past few days. When she was having diarrhea, this was brown water. Patient denies any blood in the diarrhea. Patient denies any feelings of dizziness but does state that she feels lightheaded. Patient denies any syncope. Patient was tested positive in the emergency department for COVID-19. HOSPITAL COURSE: Patient's nausea, vomiting, and diarrhea was thought to be secondary to COVID-19. Patient states that she is no longer nauseous on the first day of her hospitalization however, patient did start developing diarrhea. This was brown watery diarrhea. Patient also became hypoxic and required 1 L of oxygen to maintain oxygen saturation greater than 90%. Because of her hypoxia, patient was started on remdesivir and dexamethasone. Patient tolerated these treatments well and on 06/01/2021, patient was able to be weaned off the oxygen and maintained her saturations greater than 95% on room air. Patient was tolerating oral diet and was feeling better. The decision was made to discharge the patient home. Patient did not want a home health referral. Patient was discharged home on 06/01/2021 with 3 days of prednisone and incentive spirometry. Patient was thought to have airspace disease on chest x-ray however, procalcitonin was negative so antibiotics were never changed from the Augmentin that the patient was placed on for her otitis media. I did instruct the patient that the recommendations are for the patient to receive one of the mRNA vaccinations (Pfizer or Moderna) once the patient is feeling better. DISCHARGE MEDICATIONS: Please see below. ALLERGIES: Please see below. PHYSICAL EXAMINATION ON DISCHARGE: VITAL SIGNS: Please see below. General: Alert and oriented female patient who was sitting in bedside chair when I walked in the room. Patient did not appear to be in any acute distress. HEENT: Normocephalic, atraumatic, moist mucous membranes. Neck: No lymphadenopathy or thyromegaly Cardiac: Regular rate and rhythm, no murmurs, normal S1, normal S2 Pulm: Clear to auscultation bilaterally. No wheezes, rhonchi, rales Abd: Nondistended, nontender to palpation, normal bowel sounds Ext: No edema bilateral lower extremities LABORATORY DATA: Please see below. IMAGING: Chest x-ray performed on 05/30/2021 is reported to show airspace disease in the left base consistent with atelectasis or pneumonia PROGNOSIS: Good ACTIVITY: As tolerated. DIET: Brat diet and advance as tolerated DISCHARGE PLAN: Discharge home DISPOSITION: 01-Home, self-care DISCHARGE INSTRUCTIONS: 1. Follow-up with primary care provider within 3 to 5 days discharge. 2. Follow-up with public health for instructions on quarantine 3. Take prednisone 40 mg once a day for the next 3 days 4. Return to the emergency department symptoms worsen ITEMS TO FOLLOWUP ON ON OUTPATIENT: 1. None. DISCHARGE CONDITION: Stable. TIME SPENT ON DISCHARGE: 25 minutes. Vital Signs/I&Os Vital Signs Date Time Temp Pulse Resp B/P (MAP) Pulse Ox O2 Delivery O2 Flow Rate FiO2 06/01/21 09:00 1.0 06/01/21 04:18 97.6 54 18 120/58 (78) 94 Room Air I&O- Last 24 Hours up to 6 AM 06/01/21 06:00 Intake Total 1720 ml Output Total 600 ml Balance 1120 ml Laboratory Data Labs 24H Laboratory Tests 2 06/01/21 05:31: Nucleated Red Blood Cells % (auto) 0.0 06/01/21 05:32: Anion Gap 4L, Glomerular Filtration Rate > 60.0, Calcium Level 8.9, Magnesium Level 2.1, Total Bilirubin 0.4, Direct Bilirubin 0.1, Aspartate Amino Transf (AST/SGOT) 48H, Alanine Aminotransferase (ALT/SGPT) 104H, Alkaline Phosphatase 95, Total Protein 6.6, Albumin 2.7#L, Albumin/Globulin Ratio 0.7L CBC/BMP Laboratory Tests 06/01/21 05:31 06/01/21 05:32 Microbiology Microbiology 05/30/21 Respiratory Virus Panel (PCR) ([facility]) - Final, Complete SARS-CoV-2 (COVID 19) Discharge Medications Scheduled Amoxicillin/Potassium Clav (Amox-Clav 875-125 mg Tablet) 1 Each Tablet, 1 TAB PO BID, (Reported) Prednisone (Prednisone) 20 Mg Tablet, 2 TAB PO DAILY Scheduled PRN Acetaminophen (Acetaminophen) 500 Mg Tablet, 500 MG PO Q6H PRN for PAIN LEVEL 1- 4, (Reported) Fluticasone Propionate (Fluticasone Propionate) 16 Gm [place].susp, 2 SPRAY NARES DAILY PRN for CONGESTION, (Reported) Allergies Coded Allergies: No Known Allergies (Verified , 09/04/12) TINO RITTER DO Jun 01, 2021 13:51
[2021-06-01 14:00] VITALS: BP 141/67
== END 2021-06-01 15:30 | disposition home or self-care (01) | DRG 137 ==
LOC: EDBD 09:47 → M ED 09:47 → M ED INP 09:48 → M 4MAIN 21:08 → OBSVTOIN 05-31 09:46
PROVIDERS: ADMIT Family Medicine; ATTEND Family Medicine
DX: U07.1 COVID-19 (principal); E87.1 Hypo-osmolality and hyponatremia; R11.2 Nausea with vomiting, unspecified; E87.6 Hypokalemia; H66.90 Otitis media, unspecified, unspecified ear; R19.7 Diarrhea, unspecified